=== PATIENT | female | born 1980 | race Caucasian/White ===

== ENCOUNTER 2022-06-16 20:25 | Emergency (ER) | payer MEDICAID ==
[~2022-06-16] VITALS: Ht 160 cm; Wt 83.9 kg
[2022-06-16 20:42] VITALS: BP 127/69
--- NOTE | 2022-06-16 20:52 | NUR ---
Patient ambulated to bed 6.
--- NOTE | 2022-06-16 21:00 | NUR ---
PT AMBULATED TO ED 6, PT C/O ABD CRAMPING SINCE 1800, PT STATES SHE IS 7 WEEKS , LMP 04/20/22, , PT DENIES ANY VAGINAL BLEEDING.
--- NOTE | 2022-06-16 21:03 | NUR ---
Dr. Rodriguez examining patient.
--- NOTE | 2022-06-16 21:22 | NUR ---
BARB TRACK REPAIRER HELPER TOOK PT'S URINE TO LAB.
[2022-06-16 21:28] LABS: BASOPHILS # (AUTO) 0.2 K/uL (0.00-0.22); EOSINOPHILS # (AUTO) 0.2 K/uL (0-0.4); EOSINOPHILS % (AUTO) 1.1 % (0.0-4.0); HEMATOCRIT 35.6 % (36-48); HEMOGLOBIN 11.9 g/dL (12.0-16.0); LYMPHOCYTES # (AUTO) 5.7 K/uL (2.5-16.5); LYMPHOCYTES % (AUTO) 37.4 % (20.5-51.1); MEAN CORPUSCULAR HEMOGLOBIN 27 pg (27-31); MEAN CORPUSCULAR HGB CONC 33 g/dL (33-37); MEAN CORPUSCULAR VOLUME 80.8 fL (80-94); MONOCYTES # (AUTO) 1.2 K/uL (0.8-1.0); MONOCYTES % (AUTO) 8.1 % (1.7-9.3); NEUTROPHILS % (AUTO) 52.4 % (42.2-75.2); PLATELET COUNT (AUTO) 377 K/uL (140-450); RED CELL DISTRIBUTION WIDTH 15.6 % (11.6-13.7); WHITE BLOOD COUNT (AUTO) 15.4 K/uL (4.8-10.8)
[2022-06-16 21:49] LABS: APPEARANCE,URINE CLEAR (CLEAR); BILIRUBIN,URINE NEGATIVE (NEGATIVE); BLOOD, URINE TRACE-I (NEGATIVE); COLOR,URINE YELLOW (YELLOW); LEUKOCYTE ESTERASE ,URINE NEGATIVE (NEGATIVE); NITRITE, URINE NEGATIVE (NEGATIVE); UGLUCOSE NEGATIVE (NEGATIVE)
--- NOTE | 2022-06-16 22:10 | NUR ---
Ultrasound at bedside.
[2022-06-16] MEDS ORDERED: ONDA-188 PO (22:50)
[2022-06-16] MEDS ORDERED: ACET-10509 PO (22:50)
--- NOTE | 2022-06-16 22:54 | NUR ---
Dr. Hess examining patient.
[2022-06-16 23:19] VITALS: BP 129/64
--- NOTE | 2022-06-16 23:19 | NUR ---
Patient discharged with v/s stable. Written and verbal after care instructions given and explained. Patient alert, oriented and verbalized understanding of instructions. Ambulatory with steady gait. All questions addressed prior to discharge. ID band removed. Patient advised to follow up with PMD. Rx of TYLENOL AND ZOFRAN given. Patient educated on indication of medication including possible reaction and side effects. Opportunity to ask questions provided and answered.
== END 2022-06-16 23:19 | disposition home or self-care (01) ==
LOC: MED 20:25
DX: O26.899 Other specified pregnancy related conditions, unspecified trimester (principal); R10.30 Lower abdominal pain, unspecified
CPT/HCPCS: 36415; 76817; 81003; 81025; 84702; 85025; 86900; 86901; 99284; Q0092

== ENCOUNTER 2022-06-18 20:25 | Emergency (ER) | payer MEDICAID ==
[~2022-06-18] VITALS: Ht 160 cm; Wt 81.6 kg
[~2022-06-18 20:25] MED LIST: ACET-10509 PO; ONDA-188 PO
[2022-06-18 20:37] VITALS: BP 126/79
--- NOTE | 2022-06-18 20:46 | NUR ---
TO LOBBY FOLLOWING TRIAGE
--- NOTE | 2022-06-18 22:14 | NUR ---
PT TAKEN TO BED 5
--- NOTE | 2022-06-18 22:20 | NUR ---
Patient BIB by family C/O re-check today. Patient reported, had abdominal pain on 06/16/22 and came to ER and D/C and patient came back today for re-check as recommendation, no vaginal bleeding, preg ~6-7 weeks , [id number] PMHx: DENIES
--- NOTE | 2022-06-18 22:50 | NUR ---
Blood for labwork drawn from left arm by anode rebuilder. Patient tolerated well.
--- NOTE | 2022-06-18 22:55 | NUR ---
urine sample collected and sent to lab.
[2022-06-18 23:01] LABS: BASOPHILS # (AUTO) 0.1 K/uL (0.00-0.22); BASOPHILS % (AUTO) 0.8 % (0.0-2.0); EOSINOPHILS # (AUTO) 0.2 K/uL (0-0.4); EOSINOPHILS % (AUTO) 1.5 % (0.0-4.0); HEMATOCRIT 35.2 % (36-48); HEMOGLOBIN 11.7 g/dL (12.0-16.0); LYMPHOCYTES # (AUTO) 5.9 K/uL (2.5-16.5); LYMPHOCYTES % (AUTO) 40.4 % (20.5-51.1); MEAN CORPUSCULAR HEMOGLOBIN 27 pg (27-31); MEAN CORPUSCULAR HGB CONC 33 g/dL (33-37); MEAN CORPUSCULAR VOLUME 80.8 fL (80-94); MONOCYTES # (AUTO) 1.1 K/uL (0.8-1.0); MONOCYTES % (AUTO) 7.4 % (1.7-9.3); NEUTROPHILS # (AUTO) 7.3 K/uL (1.8-7.7); NEUTROPHILS % (AUTO) 49.9 % (42.2-75.2); PLATELET COUNT (AUTO) 381 K/uL (140-450); RED BLOOD CELL COUNT(AUTO) 4.36 MIL/uL (4.20-5.40); RED CELL DISTRIBUTION WIDTH 15.1 % (11.6-13.7); WHITE BLOOD COUNT (AUTO) 14.6 K/uL (4.8-10.8)
[2022-06-18 23:08] LABS: BILIRUBIN,URINE NEGATIVE (NEGATIVE); BLOOD, URINE TRACE-I (NEGATIVE); COLOR,URINE YELLOW (YELLOW); LEUKOCYTE ESTERASE ,URINE TRACE (NEGATIVE); NITRITE, URINE NEGATIVE (NEGATIVE); UGLUCOSE NEGATIVE (NEGATIVE)
[2022-06-18 23:13] LABS: ANION GAP 9.3 (8-16); CARBON DIOXIDE 27.5 mmol/L (21-32); CREATININE 0.5 mg/dL (0.6-1.3); POTASSIUM 3.8 mmol/L (3.5-5.1)
[2022-06-18 23:18] LABS: APPEARANCE,URINE CLEAR (CLEAR)
[2022-06-18 23:20] LABS: RBC,URINE 0-5 /HPF (0-5); WBC,URINE 0-5 /HPF (0-5)
--- NOTE | 2022-06-18 23:45 | NUR ---
Ultrasound at bedside.
--- NOTE | 2022-06-19 01:51 | NUR ---
PT LEFT FACILITY AT THIS TIME. PER DR. SIMS, RESULTS WILL BE PHONED IN TO PATIENT.
== END 2022-06-19 01:51 | disposition home or self-care (01) ==
LOC: MED 20:25
DX: O20.0 Threatened abortion (principal); Z3A.01 Less than 8 weeks gestation of pregnancy; Z72.89 Other problems related to lifestyle
CPT/HCPCS: 36415; 76817; 80048; 81001; 84702; 85025; 99284; Q0092